=== PATIENT | female | born 2000 | race Caucasian/White ===

== ENCOUNTER → 2021-04-04 | Outpatient (CLI) | payer OTHER | END | disposition home or self-care (01) | LOC: LAB SHORT 17:12 | DX: Z33.1 Pregnant state, incidental (principal) | CPT/HCPCS: 84702 ==

== ENCOUNTER → 2021-05-13 | Outpatient (CLI) | payer OTHER ==
[2021-05-15 03:08] LABS: CHLAMYDIA TRACHOMATIS, NAA Negative (Negative)
== END | disposition home or self-care (01) ==
LOC: LAB SHORT 13:50 → LAB 13:50
PROVIDERS: Family Medicine
DX: Z01.419 Encounter for gynecological examination (general) (routine) without abnormal findings (principal); Z11.3 Encounter for screening for infections with a predominantly sexual mode of transmission